=== PATIENT | female | born 1940 | race Caucasian/White ===

== ENCOUNTER 2020-03-06 12:19 | Outpatient (CLI) | payer OTHER ==
[~2020-03-06 12:19] MED LIST: ADVIL100 MG PO; BEE WITH C1 CAP PO; CIPRO750 MG PO; ENALAPRIL MALEA10 MG; HUMULIN 70/30 V10 ML SQ; IRON325 ( 65 ); NEURONTIN300 MG; NEURONTIN300 MG PO; PROTONIX20 MG; TORADOL30 MG IM; TRADJENTA5 MG; ULTRACET PO; VENTIL; VITAMIN B-12500 MC3; ZANTAC 7575 MG
== END 2020-03-06 12:25 | disposition home or self-care (01) ==
LOC: LAB 12:19
PROVIDERS: ATTEND Internal Medicine Hematology & Oncology
DX: D50.8 Other iron deficiency anemias (principal); D63.1 Anemia in chronic kidney disease; N18.4 Chronic kidney disease, stage 4 (severe); E08.21 Diabetes mellitus due to underlying condition with diabetic nephropathy; D51.3 Other dietary vitamin B12 deficiency anemia; E08.65 Diabetes mellitus due to underlying condition with hyperglycemia